=== PATIENT | female | born 1995 | race American Indian/Alaskan Native ===

== ENCOUNTER 2016-11-22 14:56 | Emergency (ER) | payer SELFPAY ==
[2016-11-22] MEDS ORDERED: TORADOL ONE (16:01)
[2016-11-22] MEDS ORDERED: TORADOL IM ONE (16:11)
--- NOTE | 2016-11-22 16:11 | Emergency Department Report ---
Chief Complaint: Abdominal Pain Stated Complaint: ABD PAIN Time Seen by Provider: 11/22/16 16:06 - HPI History of Present Illness: Patient is a 21-year-old female who presents to ED complaining of left-sided flank pain 4 days. Patient states pain began 4 days ago and has gotten progressively worse. Patient states last menstrual period was 11/17/2016. Patient states she notices a spot of blood when she wipes after she uses a bathroom started 2 days ago. She states pain is localized to the left flank area nonradiating, 9 out of 10 intensity Patient denies fever/nausea/vomiting chills/pain with urination. - ROS Review of Systems: As noted in HPI - Exam Vital Signs: Vital Signs 11/22/16 15:57 Temperature 99.5 F Pulse Rate 85 Respiratory 24 Rate Blood Pressure 132/81 O2 Sat by Pulse 97 Oximetry Physical Exam: GENERAL: Alert and oriented x3, in mild distress, Normal Gait, crying and stating pain. LUNGS: Symetrical with respiration, No wheezing, no rales or crackles, CTAB. HEART: S1, S2 present, regular rate and rhythm without murmur, no rubs, no gallops. ABDOMEN: No organomegaly was noted,Positive bowel sounds, soft, and non- distended. . Tenderness to palpation of left flank area, CVA tenderness on the left side nontender to any other palpation of the abdomen, MSE screening note: Focused history and physical exam performed. Due to findings the following was ordered: ED Medical Decision Making - Medical Decision Making 60 mg of Toradol IM administered to patient. Labs ordered. Patient to be seen by ED physician. ED Disposition for MSE Condition: Stable Instructions: Abdominal Pain (ED)
[2016-11-22 17:47] LABS: Bacteria,Urine 1+ /HPF (Negative); Bilirubin,Urine NEG (Negative); Blood,Urine MOD (Negative); Ketones,Urine NEG (Negative); Leukocyte Esterase,Urine LG (Negative); Mucus,Urine FEW /HPF; Nitrite,Urine POS (Negative); Urobilinogen,Urine < 2.0 mg/dL (<2.0)
[2016-11-22] MEDS ORDERED: ZOFRAN IV ONE (22:46)
[2016-11-22] MEDS ORDERED: SUBLIMAZE IV ONE (22:46)
[2016-11-22] MEDS ORDERED: TORADOL IV ONE (22:46)
[2016-11-22] MEDS ORDERED: ROCEPHIN/NS 1 GM/50 ML 1 GM/50 ML BAG IV ONE (22:47)
--- NOTE | 2016-11-22 22:53 | Emergency Department Report ---
HPI - General Chief Complaint: Abdominal Pain Time Seen by Provider: 11/22/16 16:06 - HPI HPI: Room 10 The patient is a 21-year-old female presenting with a chief complaint of left flank pain. The patient states for the past 4 days she has had a constant left flank pain. Patient denies hematuria or dysuria. Patient admits to subjective fever. Patient does admit to nausea and vomiting. The patient appears to be in a lot of discomfort and is not forthcoming with history. The patient gives her pain a score of 40/10 Location: Left flank Duration: 4 days Quality: "Pain" Severity: 40/10 Modifying factors: [see above] Context: [see above] Mode of transportation: [not driving] ED Past Medical Hx - Past Medical History Previous Medical History?: No - Surgical History Past Surgical History?: No - Family History Family history: no significant - Social History Smoking Status: Current Every Day Smoker Substance Use Type: None - Medications Home Medications: Home Medications Medication Instructions Recorded Confirmed Last Taken Type Ibuprofen [Motrin] 600 mg PO Q8H PRN #15 tablet 10/29/16 Unknown Rx methOCARBAMOL [Robaxin TAB] 500 mg PO Q6H PRN #15 tablet 10/29/16 Unknown Rx Ciprofloxacin HCl [Ciprofloxacin 500 mg PO Q12HR #20 tab 11/23/16 Unknown Rx TAB] HYDROcodone/APAP 5-325 [[place] 1 - 2 each PO Q6HR PRN #10 tablet 11/23/16 Unknown Rx 5/325] Ibuprofen [Motrin 800 MG tab] 800 mg PO Q8HR PRN #20 tablet 11/23/16 Unknown Rx Promethazine [Phenergan TAB] 25 mg PO Q6HR PRN #20 tab 11/23/16 Unknown Rx Promethazine [Phenergan] 25 mg [place] Q6HR PRN #5 supp.rect 11/23/16 Unknown Rx ED Review of Systems ROS: Stated complaint: ABD PAIN Other details as noted in HPI Comment: All other systems reviewed and negative Constitutional: fever (subjective) Eyes: denies: eye pain, eye discharge, vision change ENT: denies: ear pain, throat pain Respiratory: denies: cough, shortness of breath, wheezing Cardiovascular: denies: chest pain, palpitations Endocrine: no symptoms reported Gastrointestinal: abdominal pain, nausea, vomiting Genitourinary: denies: dysuria, hematuria Musculoskeletal: back pain Skin: denies: rash, lesions Neurological: denies: headache, weakness, paresthesias Psychiatric: denies: anxiety, depression Hematological/Lymphatic: denies: easy bleeding, easy bruising Physical Exam - Physical Exam Vital Signs: Vital Signs 11/22/16 15:57 Temperature 99.5 F Pulse Rate 85 Respiratory 24 Rate Blood Pressure 132/81 O2 Sat by Pulse 97 Oximetry Physical Exam: GENERAL: The patient is well-developed well-nourished female lying on stretcher tearful. Appearing to be in significant discomfort HEENT: Normocephalic. Atraumatic. Extraocular motions are intact. Patient has moist mucous membranes. NECK: Supple. Trachea midline CHEST/LUNGS: Clear to auscultation. There is no respiratory distress noted. HEART/CARDIOVASCULAR: Regular. There is no tachycardia. There is no gallop rub or murmur. ABDOMEN: Abdomen is soft, mild discomfort to palpation of the left upper quadrant and left lower quadrant. Patient has normal bowel sounds. There is no abdominal distention. SKIN: There is no rash. There is no edema. There is no diaphoresis. NEURO: The patient is awake, alert, and oriented. The patient is cooperative. The patient has normal speech MUSCULOSKELETAL: There is left flank pain. There is no evidence of acute injury. ED Course Vital Signs 11/22/16 15:57 Temperature 99.5 F Pulse Rate 85 Respiratory 24 Rate Blood Pressure 132/81 O2 Sat by Pulse 97 Oximetry ED Medical Decision Making - Lab Data Result diagrams: 11/22/16 22:15 11/22/16 22:15 Laboratory Tests 11/22/16 11/22/16 11/22/16 16:31 16:53 22:15 WBC 15.5 H RBC 4.66 Hgb 11.9 Hct 37.4 MCV 80 MCH 26 L MCHC 32 RDW 19.3 H Plt Count 152 Lymph % (Auto) 11.2 L Stanley % (Auto) 12.7 H Eos % (Auto) 0.1 Baso % (Auto) 0.2 Lymph # 1.7 Stanley # 2.0 H Eos # 0.0 Baso # 0.0 Seg Neutrophils % 75.8 H Seg Neutrophils # 11.8 H Sodium Potassium Chloride Carbon Dioxide Anion Gap BUN Creatinine Estimated GFR BUN/Creatinine Ratio Glucose Calcium HCG, Qual Negative Urine Color Yellow Urine Turbidity Slightly-cloudy Urine pH 6.0 Ur Specific [place] 1.016 Urine Protein 30 mg/dl Urine Glucose (UA) Neg Urine Ketones Neg Urine Blood Mod Urine Nitrite Pos Urine Bilirubin Neg Urine Urobilinogen < 2.0 Ur Leukocyte Esterase Lg Urine WBC (Auto) 87.0 H Urine RBC (Auto) 4.0 U Epithel Cells (Auto) 2.0 Urine Bacteria (Auto) 1+ Urine Mucus Few 11/22/16 22:15 WBC RBC Hgb Hct MCV MCH MCHC RDW Plt Count Lymph % (Auto) Stanley % (Auto) Eos % (Auto) Baso % (Auto) Lymph # Stanley # Eos # Baso # Seg Neutrophils % Seg Neutrophils # Sodium 138 Potassium 3.6 Chloride 99.7 Carbon Dioxide 25 Anion Gap 17 BUN 17 Creatinine 0.9 Estimated GFR > 60 BUN/Creatinine Ratio 18.88 Glucose 92 Calcium 8.4 HCG, Qual Urine Color Urine Turbidity Urine pH Ur Specific [place] Urine Protein Urine Glucose (UA) Urine Ketones Urine Blood Urine Nitrite Urine Bilirubin Urine Urobilinogen Ur Leukocyte Esterase Urine WBC (Auto) Urine RBC (Auto) U Epithel Cells (Auto) Urine Bacteria (Auto) Urine Mucus - Radiology Data Radiology results: report reviewed (CT abdomen and pelvis), image reviewed (CT abdomen and pelvis) CT abdomen pelvis (read by radiologist)-left perinephric stranding concerning for pyelonephritis - Differential Diagnosis renal colic, pyelonephritis Critical care attestation.: If time is entered above; I have spent that time in minutes in the direct care of this critically ill patient, excluding procedure time. ED Disposition Clinical Impression: Acute left flank pain, Acute pyelonephritis, Leukocytosis Disposition: DISCHARGED TO HOME OR SELFCARE Is pt being admited?: No Does the pt Need Aspirin: No Condition: Stable Instructions: Abdominal Pain (ED), Acute Pyelonephritis (ED) Additional Instructions: Return to the emergency department immediately should you develop worsening symptoms, fever, inability to tolerate food or liquid or any other concerns. Prescriptions: Ciprofloxacin HCl [Ciprofloxacin TAB] 500 mg PO Q12HR #20 tab HYDROcodone/APAP 5-325 [[place] 5/325] 1 - 2 each PO Q6HR PRN #10 tablet PRN Reason: Pain Ibuprofen [Motrin 800 MG tab] 800 mg PO Q8HR PRN #20 tablet PRN Reason: Pain Promethazine [Phenergan TAB] 25 mg PO Q6HR PRN #20 tab PRN Reason: Nausea Promethazine [Phenergan] 25 mg [place] Q6HR PRN #5 supp.rect PRN Reason: Vomiting Referrals: PRIMARY CARE, [Primary Care Provider] - 3-[address] [facility] [Outside] - 3-5 Days Time of Disposition: 00:28
[2016-11-22 23:04] LABS: Basophils % (Auto) 0.2 % (0.0-1.8); Eosinophils % (Auto) 0.1 % (0.0-4.3); Hematocrit 37.4 % (30.3-42.9); Hemoglobin 11.9 gm/dl (10.1-14.3); Mean Corpuscular HGB Conc 32 % (30-34); Mean Corpuscular Volume 80 fl (79-97); Platelet Count 152 K/mm3 (140-440); Red Blood Count 4.66 M/mm3 (3.65-5.03); Red Cell Distribution Width 19.3 % (13.2-15.2); White Blood Count 15.5 K/mm3 (4.5-11.0)
[2016-11-22 23:18] LABS: Mean Corpuscular Hemoglobin 26 pg (28-32)
[2016-11-22 23:21] LABS: Anion Gap 17 mmol/L; BUN/Creatinine Ratio 18.88; Blood Urea Nitrogen 17 mg/dL (7-17); Calcium 8.4 mg/dL (8.4-10.2); Carbon Dioxide 25 mmol/L (22-30); Chloride 99.7 mmol/L (98-107); Glucose 92 mg/dL (65-100); Potassium 3.6 mmol/L (3.6-5.0); Sodium 138 mmol/L (137-145)
--- NOTE | 2016-11-23 00:13 | Cat Scan Report ---
FINAL REPORT EXAM: CT ABDOMEN PELVIS WO CON HISTORY: left flank pain COMPARISON: None available. TECHNIQUE: Contiguous axial images were obtained. Additional sagittal and coronal reformatted images were obtained. FINDINGS: Lung bases are clear. Mild enlargement of the liver measuring 14 centimeters. Liver and pancreas are grossly unremarkable. Mild nodular thickening of adrenal glands. No calcified gallstones. Mild left-sided perinephric stranding. No nephrolithiasis or hydronephrosis bilaterally. Aorta and IVC are normal in caliber. No distal ureteral or urinary bladder calculi. Uterus and ovaries are grossly unremarkable. No free fluid or pathologic lymphadenopathy. Large and small bowel loops normal in caliber. The visualized appendix is normal in caliber and best seen on the coronal images measuring 4-5 millimeters in diameter. No adjacent fat stranding or fluid. Bony pelvis and lumbar spine are grossly intact. IMPRESSION: Mild left-sided perinephric stranding. No obstructive uropathy urolithiasis. Findings are concerning for left-sided pyelonephritis. Recent passage of stone could cause a similar appearance. Correlation with urinalysis suggested. No other gross acute findings.
[2016-11-23 00:27] VITALS: BP 114/57
--- NOTE | 2016-11-23 07:22 | XRay Report ---
Single view abdomen: History: Pain. Findings: No bowel distention or wall thickening. No radiopaque calculus or abnormal calcification. Impression: Essentially negative abdomen.
== END 2016-11-23 00:01 | disposition home or self-care (01) ==
LOC: ED 14:56
DX: N10 Acute pyelonephritis (principal); D72.829 Elevated white blood cell count, unspecified; F17.200 Nicotine dependence, unspecified, uncomplicated
CPT/HCPCS: 36415; 74000; 74176; 80048; 81001; 84703; 85025; 96365; 96372; 96375; 99284; J0696; J1885; J2405; J3010

== ENCOUNTER 2017-05-15 23:16 | Emergency (ER) | payer SELFPAY ==
[2017-05-15] MEDS ORDERED: ATIVAN IM ONE (23:25)
[2017-05-15] MEDS ORDERED: HALDOL IM ONE (23:25)
[2017-05-15] MEDS ORDERED: HALDOL ONE (23:27)
[2017-05-15] MEDS ORDERED: ATIVAN ONE (23:27)
--- NOTE | 2017-05-15 23:27 | Emergency Department Report ---
ED General Adult HPI - General Chief complaint: Altered Mental Status Stated complaint: UNRESPONSIVE Time Seen by Provider: 05/15/17 23:24 Source: EMS (verbal report received from EMS.ems notes not available at time of chart dictation), RN notes reviewed, old records reviewed Limitations: Altered Mental Status - History of Present Illness Initial comments: This is a 21-year-old female. The patient is previously unknown to this provider. Patient is brought to the hospital by EMS for altered mental status. As per verbal report from EMS, patient found down, outside, for uncertain duration of time, and through uncertain mechanism. They report appropriate finger stick in the field, and pinpoint pupils that does not react to Narcan. No family or witnesses are available at this time for corroborating history. The patient is altered, and is not able to provide exacerbating or relieving factors. In the ER, the patient became somewhat more responsive, and was agitated, belligerent and combative. The patient did not respond to verbal de- escalation techniques, nor did she respond to show of force. Patient clearly a danger to herself and to other patients, therefore required soft restraints, and was medicated with Haldol, Ativan, still agitated, and required administration of Geodon. -: unknown Quality: other (per hpi) Improves with: other (per hpi) Worsens with: other (per hpi) Associated Symptoms: other (per hpi) - Related Data Previous Rx's Medication Instructions Recorded Last Taken Type Ibuprofen [Motrin] 600 mg PO Q8H PRN #15 tablet 10/29/16 Unknown Rx methOCARBAMOL [Robaxin TAB] 500 mg PO Q6H PRN #15 tablet 10/29/16 Unknown Rx Ciprofloxacin HCl [Ciprofloxacin 500 mg PO Q12HR #20 tab 11/23/16 Unknown Rx TAB] HYDROcodone/APAP 5-325 [[place] 1 - 2 each PO Q6HR PRN #10 tablet 11/23/16 Unknown Rx 5/325] Ibuprofen [Motrin 800 MG tab] 800 mg PO Q8HR PRN #20 tablet 11/23/16 Unknown Rx Promethazine [Phenergan TAB] 25 mg PO Q6HR PRN #20 tab 11/23/16 Unknown Rx Promethazine [Phenergan] 25 mg [place] Q6HR PRN #5 supp.rect 11/23/16 Unknown Rx Bacitracin [Bacitracin Ophth] 3.5 gm OP Q6HR #1 oint...g. 05/16/17 Unknown Rx Cephalexin [Keflex] 500 mg PO Q12HR #10 cap 05/16/17 Unknown Rx Allergies Allergy/AdvReac Type Severity Reaction Status Date / Time No Known Allergies Allergy Verified 01/06/15 18:15 ED Review of Systems ROS: Stated complaint: UNRESPONSIVE Other details as noted in HPI Comment: Unobtainable due to pts medical conditions ED Past Medical Hx - Past Medical History Hx Hypertension: No Hx CVA: No Hx Heart Attack/AMI: No Hx Congestive Heart Failure: No Hx Diabetes: No Hx Deep Vein Thrombosis: No Hx Pulmonary Embolism: No Hx GERD: No Hx Liver Disease: No Hx Renal Disease: No Hx Sickle Cell Disease: No Hx Arthritis: No Hx Headaches / Migraines: No Hx Seizures: No Hx Kidney Stones: No Hx Psychiatric Treatment: No Hx Asthma: No Hx COPD: No Hx Tuberculosis: No Hx Dementia: No Hx HIV: No - Social History Smoking Status: Current Every Day Smoker Substance Use Type: None - Medications Home Medications: Home Medications Medication Instructions Recorded Confirmed Last Taken Type Ibuprofen [Motrin] 600 mg PO Q8H PRN #15 tablet 10/29/16 Unknown Rx methOCARBAMOL [Robaxin TAB] 500 mg PO Q6H PRN #15 tablet 10/29/16 Unknown Rx Ciprofloxacin HCl [Ciprofloxacin 500 mg PO Q12HR #20 tab 11/23/16 Unknown Rx TAB] HYDROcodone/APAP 5-325 [[place] 1 - 2 each PO Q6HR PRN #10 tablet 11/23/16 Unknown Rx 5/325] Ibuprofen [Motrin 800 MG tab] 800 mg PO Q8HR PRN #20 tablet 11/23/16 Unknown Rx Promethazine [Phenergan TAB] 25 mg PO Q6HR PRN #20 tab 11/23/16 Unknown Rx Promethazine [Phenergan] 25 mg [place] Q6HR PRN #5 supp.rect 11/23/16 Unknown Rx Bacitracin [Bacitracin Ophth] 3.5 gm OP Q6HR #1 oint...g. 05/16/17 Unknown Rx Cephalexin [Keflex] 500 mg PO Q12HR #10 cap 05/16/17 Unknown Rx ED Physical Exam - General Limitations: Altered Mental Status General appearance: lethargic - Head Head exam: Present: normocephalic - Eye Eye exam: Present: normal appearance, other (pupils are midpoint, did not react to light). Absent: nystagmus - ENT ENT exam: Present: normal exam, mucous membranes moist, TM's normal bilaterally. Absent: normal external ear exam (right ear within normal limits. Left ear has a laceration at this helix. It is not through and through. No foreign bodies are noted.) - Neck Neck exam: Present: normal inspection. Absent: tenderness, meningismus - Respiratory Respiratory exam: Present: normal lung sounds bilaterally. Absent: respiratory distress, wheezes, rales, rhonchi, stridor, chest wall tenderness - Cardiovascular Cardiovascular Exam: Present: regular rate, normal rhythm, normal heart sounds. Absent: bradycardia, tachycardia, irregular rhythm, systolic murmur, diastolic murmur, rubs, gallop - GI/Abdominal GI/Abdominal exam: Present: soft, normal bowel sounds. Absent: distended, tenderness, guarding, rebound, rigid, pulsatile mass - Extremities Exam Extremities exam: Present: normal inspection, normal capillary refill. Absent: tenderness, calf tenderness - Back Exam Back exam: Present: normal inspection. Absent: CVA tenderness (R), paraspinal tenderness, vertebral tenderness - Neurological Exam Neurological exam: Present: altered, other (prior to sedation, patient noted to be moving 4 extremities spontaneously.) - Psychiatric Psychiatric exam: Present: agitated - Skin Skin exam: Present: other (left ear laceration). Absent: rash ED Course Vital Signs 05/15/17 05/15/17 05/16/17 23:40 23:50 00:00 Pulse Rate 92 H 92 H 87 Respiratory 20 22 14 Rate Blood Pressure 117/68 Blood Pressure 117/68 [Left] O2 Sat by Pulse 100 97 Oximetry 05/16/17 05/16/17 05/16/17 00:15 00:30 00:45 Pulse Rate 87 88 89 Respiratory 15 15 16 Rate Blood Pressure 106/55 106/55 105/62 Blood Pressure 106/55 102/53 [Left] O2 Sat by Pulse 99 100 Oximetry 05/16/17 05/16/17 05/16/17 00:51 01:00 01:49 Pulse Rate 89 89 Respiratory 16 12 Rate Blood Pressure 117/72 Blood Pressure 105/62 [Left] O2 Sat by Pulse 100 100 98 Oximetry 05/16/17 05/16/17 05/16/17 02:01 02:15 02:30 Pulse Rate 90 91 H 89 Respiratory 14 14 14 Rate Blood Pressure 112/74 115/64 111/65 Blood Pressure [Left] O2 Sat by Pulse 98 Oximetry 05/16/17 05/16/17 05/16/17 02:45 03:00 03:15 Pulse Rate 99 H 90 87 Respiratory 12 14 12 Rate Blood Pressure 129/90 114/65 105/65 Blood Pressure [Left] O2 Sat by Pulse 96 97 100 Oximetry 05/16/17 05/16/17 05/16/17 03:30 03:45 04:00 Pulse Rate 89 89 89 Respiratory 12 13 13 Rate Blood Pressure 107/59 102/63 109/59 Blood Pressure [Left] O2 Sat by Pulse Oximetry 05/16/17 05/16/17 05/16/17 04:15 04:30 05:00 Pulse Rate 88 88 87 Respiratory 12 12 12 Rate Blood Pressure 110/65 108/64 104/70 Blood Pressure [Left] O2 Sat by Pulse 100 100 Oximetry 05/16/17 05/16/17 05/16/17 05:30 06:00 06:30 Pulse Rate 93 H 86 91 H Respiratory 12 13 12 Rate Blood Pressure 116/75 110/67 114/69 Blood Pressure [Left] O2 Sat by Pulse 100 100 Oximetry 05/16/17 05/16/17 05/16/17 07:00 07:30 08:00 Pulse Rate 88 91 H 83 Respiratory 11 L 13 12 Rate Blood Pressure 103/67 110/65 99/52 Blood Pressure [Left] O2 Sat by Pulse 100 100 Oximetry 05/16/17 05/16/17 05/16/17 08:30 09:00 09:30 Pulse Rate 92 H 92 H 97 H Respiratory 15 13 15 Rate Blood Pressure 104/58 107/56 114/67 Blood Pressure [Left] O2 Sat by Pulse 100 Oximetry 05/16/17 05/16/17 05/16/17 10:00 10:30 11:00 Pulse Rate 92 H 92 H 99 H Respiratory 14 12 18 Rate Blood Pressure 103/52 107/62 103/51 Blood Pressure [Left] O2 Sat by Pulse 96 Oximetry 05/16/17 11:30 Pulse Rate 109 H Respiratory 15 Rate Blood Pressure 113/33 Blood Pressure [Left] O2 Sat by Pulse 91 Oximetry - Reevaluation(s) Reevaluation #1: 05/16/17 00:33 Differential diagnosis: Intracranial injury, cervical spine injury, pneumonia, urinary tract infection, toxic encephalopathy, left ear laceration Assessment and plan: 21-year-old female found down, threw uncertain mechanism, uncertain duration of time, most likely unintentional overdose. There is no stigmata of external wounds, that would be self-inflicted, as an incidental left -sided ear laceration. Noncontrast CT scan of the brain and cervical spine are pending, cervical collar resorted, laboratory studies thus far unremarkable, x-ray the chest not consistent with pneumonia, urinalysis pending. Tetanus vaccination will be administered. Reevaluation #2: 05/16/17 05:10 Blood alcohol level elevated at 0.42. CT scan of the brain and cervical spine are negative. Laceration of the left ear repaired Currently awaiting clinical sobriety Reevaluation #3: 05/16/17 05:13 Care will be transferred to the oncoming ER physician, Dr. Harrison Carroll, who will observe the patient in the ER pending clinical sobriety. Plan to discharge the patient once her blood alcohol level is less than 0.1, and when she can walk with a steady gait, is alert and oriented 3, and appears to exhibit decision-making capacity. She'll need to follow-up with either plastics , otolaryngology for her left-sided ear laceration. She'll be discharged for prophylactic antibiotics. - Laceration /Wound Repair Left Upper Ear Wound Location: head Wound Length (cm): 4 Wound's Depth, Shape: linear (into tissue and cartiledge) Wound Explored: clean Irrigated w/ Saline (ccs): 500 Betadine Prep?: Yes Wound Debrided: minimal Suture Size/Type: 5:0 Number of Sutures: 4 Layer Closure?: No Sterile Dressing Applied?: No Progress: The left ear is irrigated with sterile saline and adequate pressure. It is then explored on a bloodless field. There is a linear 2.5 cm laceration on the superior aspect of the ear, involving the cartilage. No foreign bodies are noted. Interrupted sutures are placed with 5-0 monofilament, with good cosmetic approximation, the patient tolerated the procedure adequately. No obvious complication. ED Medical Decision Making - Lab Data Result diagrams: 05/15/17 23:39 05/15/17 23:39 Lab Results 05/15/17 05/15/17 05/15/17 Range/Units 23:39 23:39 23:39 WBC 7.7 (4.5-11.0) K/mm3 RBC 5.25 H (3.65-5.03) M/mm3 Hgb 14.4 H (10.1-14.3) gm/dl Hct 45.0 H (30.3-42.9) % MCV 86 (79-97) fl MCH 27 L (28-32) pg MCHC 32 (30-34) % RDW 15.1 (13.2-15.2) % Plt Count 135 L (140-440) K/mm3 Lymph % (Auto) 26.1 (13.4-35.0) % Sullivan % (Auto) 4.5 (0.0-7.3) % Eos % (Auto) 3.5 (0.0-4.3) % Baso % (Auto) 0.5 (0.0-1.8) % Lymph # 2.0 (1.2-5.4) K/mm3 Sullivan # 0.3 (0.0-0.8) K/mm3 Eos # 0.3 (0.0-0.4) K/mm3 Baso # 0.0 (0.0-0.1) K/mm3 Seg Neutrophils % 65.4 (40.0-70.0) % Seg Neutrophils # 5.1 (1.8-7.7) K/mm3 Sodium 148 H (137-145) mmol/L Potassium 4.3 (3.6-5.0) mmol/L Chloride 106.9 (98-107) mmol/L Carbon Dioxide 23 (22-30) mmol/L Anion Gap 22 mmol/L BUN 11 (7-17) mg/dL Creatinine 0.8 (0.7-1.2) mg/dL Estimated GFR > 60 ml/min BUN/Creatinine Ratio 13.75 % Glucose 110 H (65-100) mg/dL Calcium 8.5 (8.4-10.2) mg/dL Total Bilirubin 0.20 (0.1-1.2) mg/dL AST 19 (5-40) units/L ALT 14 (7-56) units/L Alkaline Phosphatase 74 (35-129) units/L Ammonia (25-60) umol/L Total Creatine Kinase 170 H (30-135) units/L Troponin T < 0.010 (0.00-0.029) ng/mL Total Protein 7.5 (6.3-8.2) g/dL Albumin 4.6 (3.9-5) g/dL Albumin/Globulin Ratio 1.6 % TSH 0.487 (0.270-4.200) mlU/mL HCG, Quant (0-4) mIU/mL Salicylates (2.8-20.0) mg/dL Acetaminophen (10.0-30.0) ug/mL Plasma/Serum Alcohol (0-0.07) gm% 05/15/17 05/15/17 05/15/17 Range/Units 23:39 23:39 23:39 WBC (4.5-11.0) K/mm3 RBC (3.65-5.03) M/mm3 Hgb (10.1-14.3) gm/dl Hct (30.3-42.9) % MCV (79-97) fl MCH (28-32) pg MCHC (30-34) % RDW (13.2-15.2) % Plt Count (140-440) K/mm3 Lymph % (Auto) (13.4-35.0) % Sullivan % (Auto) (0.0-7.3) % Eos % (Auto) (0.0-4.3) % Baso % (Auto) (0.0-1.8) % Lymph # (1.2-5.4) K/mm3 Sullivan # (0.0-0.8) K/mm3 Eos # (0.0-0.4) K/mm3 Baso # (0.0-0.1) K/mm3 Seg Neutrophils % (40.0-70.0) % Seg Neutrophils # (1.8-7.7) K/mm3 Sodium (137-145) mmol/L Potassium (3.6-5.0) mmol/L Chloride (98-107) mmol/L Carbon Dioxide (22-30) mmol/L Anion Gap mmol/L BUN (7-17) mg/dL Creatinine (0.7-1.2) mg/dL Estimated GFR ml/min BUN/Creatinine Ratio % Glucose (65-100) mg/dL Calcium (8.4-10.2) mg/dL Total Bilirubin (0.1-1.2) mg/dL AST (5-40) units/L ALT (7-56) units/L Alkaline Phosphatase (35-129) units/L Ammonia (25-60) umol/L Total Creatine Kinase (30-135) units/L Troponin T (0.00-0.029) ng/mL Total Protein (6.3-8.2) g/dL Albumin (3.9-5) g/dL Albumin/Globulin Ratio % TSH (0.270-4.200) mlU/mL HCG, Quant (0-4) mIU/mL Salicylates < 0.3 L (2.8-20.0) mg/dL Acetaminophen < 15.0 (10.0-30.0) ug/mL Plasma/Serum Alcohol 0.42 H (0-0.07) gm% 05/15/17 05/16/17 Range/Units 23:39 00:01 WBC (4.5-11.0) K/mm3 RBC (3.65-5.03) M/mm3 Hgb (10.1-14.3) gm/dl Hct (30.3-42.9) % MCV (79-97) fl MCH (28-32) pg MCHC (30-34) % RDW (13.2-15.2) % Plt Count (140-440) K/mm3 Lymph % (Auto) (13.4-35.0) % Sullivan % (Auto) (0.0-7.3) % Eos % (Auto) (0.0-4.3) % Baso % (Auto) (0.0-1.8) % Lymph # (1.2-5.4) K/mm3 Sullivan # (0.0-0.8) K/mm3 Eos # (0.0-0.4) K/mm3 Baso # (0.0-0.1) K/mm3 Seg Neutrophils % (40.0-70.0) % Seg Neutrophils # (1.8-7.7) K/mm3 Sodium (137-145) mmol/L Potassium (3.6-5.0) mmol/L Chloride (98-107) mmol/L Carbon Dioxide (22-30) mmol/L Anion Gap mmol/L BUN (7-17) mg/dL Creatinine (0.7-1.2) mg/dL Estimated GFR ml/min BUN/Creatinine Ratio % Glucose (65-100) mg/dL Calcium (8.4-10.2) mg/dL Total Bilirubin (0.1-1.2) mg/dL AST (5-40) units/L ALT (7-56) units/L Alkaline Phosphatase (35-129) units/L Ammonia 46.0 (25-60) umol/L Total Creatine Kinase (30-135) units/L Troponin T (0.00-0.029) ng/mL Total Protein (6.3-8.2) g/dL Albumin (3.9-5) g/dL Albumin/Globulin Ratio % TSH (0.270-4.200) mlU/mL HCG, Quant < 2 (0-4) mIU/mL Salicylates (2.8-20.0) mg/dL Acetaminophen (10.0-30.0) ug/mL Plasma/Serum Alcohol (0-0.07) gm% - EKG Data -: EKG Interpreted by Me EKG shows normal: sinus rhythm, axis, intervals, QRS complexes, ST-T waves - EKG Data When compared to previous EKG there are: previous EKG unavailable 05/16/17 00:35 Normal sinus, 98 bpm, normal axis, QTC 476 ms, not morphologically consistent with STEMI - Radiology Data Radiology results: pending, report reviewed, image reviewed interpreted by me: X-ray the chest is negative for acute disease Critical care attestation.: If time is entered above; I have spent that time in minutes in the direct care of this critically ill patient, excluding procedure time. ED Disposition Clinical Impression: Alcohol intoxication, Laceration of left ear Disposition: DC- TO HOME OR SELFCARE Is pt being admited?: No Does the pt Need Aspirin: No Condition: Stable Instructions: Laceration (ED), At-Risk Alcohol Use (ED) Additional Instructions: Take the antibiotics as directed. Use antibiotic cream as directed. Follow up with a plastic surgeon or build technician within the next 3-5 days to follow- up on the left ear laceration. Alternatively, return to the ER in the recommended timeframe to have the left ear laceration rechecked. Avoid trauma, and avoid excessive consumption of alcohol in the future, as this can cause , disability, paralysis, loss of quality of life. Return to the ER right away with new pain, worsened pain, migration of pain, fevers, chills, redness, pus, streaking, confusion, intractable nausea or vomiting, inability to tolerate liquid feeds. Prescriptions: Bacitracin [Bacitracin Ophth] 3.5 gm OP Q6HR #1 oint...g. Cephalexin [Keflex] 500 mg PO Q12HR #10 cap Referrals: PRIMARY CARE, [Primary Care Provider] - 3-5 Days SCOTTY GONZALEZ MD [Staff Physician] - 3-5 Days WILLARD EVANS MD [Staff Physician] - 3-5 Days
[2017-05-15] MEDS ORDERED: GEODON IM ONE (23:40)
[2017-05-15] MEDS ORDERED: WATER FOR INJ (PF) 10 ML ONE (23:41)
[2017-05-16 00:02] LABS: Basophils % (Auto) 0.5 % (0.0-1.8); Eosinophils % (Auto) 3.5 % (0.0-4.3); Hemoglobin 14.4 gm/dl (10.1-14.3); Mean Corpuscular HGB Conc 32 % (30-34); Mean Corpuscular Hemoglobin 27 pg (28-32); Mean Corpuscular Volume 86 fl (79-97); Platelet Count 135 K/mm3 (140-440); Red Blood Count 5.25 M/mm3 (3.65-5.03); Red Cell Distribution Width 15.1 % (13.2-15.2); White Blood Count 7.7 K/mm3 (4.5-11.0)
[2017-05-16] MEDS ORDERED: GEODON IM ONE (00:03)
[2017-05-16] MEDS ORDERED: BOOSTRIX IM ONE (00:06)
[2017-05-16] MEDS ORDERED: XYLOCAINE TOPICAL 4% TP ONE (00:06)
[2017-05-16] MEDS ORDERED: XYLOCAINE 1% 20 mL INFILTRATI ONE (00:06)
[2017-05-16] MEDS ORDERED: NACL 0.9% IR ONE (00:07)
[2017-05-16 00:25] LABS: Alanine Aminotransferase 14 units/L (7-56); Albumin 4.6 g/dL (3.9-5); Albumin/Globulin Ratio 1.6 %; Alkaline Phosphatase 74 units/L (35-129); Anion Gap 22 mmol/L; BUN/Creatinine Ratio 13.75; Blood Urea Nitrogen 11 mg/dL (7-17); Calcium 8.5 mg/dL (8.4-10.2); Carbon Dioxide 23 mmol/L (22-30); Chloride 106.9 mmol/L (98-107); Creatine Kinase 170 units/L (30-135); Glucose 110 mg/dL (65-100); Potassium 4.3 mmol/L (3.6-5.0); Sodium 148 mmol/L (137-145); Total Protein 7.5 g/dL (6.3-8.2)
[2017-05-16 01:15] LABS: INR 1.05 (0.87-1.13); Partial Thromboplastin Time 27.6 Sec. (24.2-36.6)
--- NOTE | 2017-05-16 02:02 | Cat Scan Report ---
FINAL REPORT EXAM: CT CERVICAL SPINE W/O CONTRAST. HISTORY: Altered mental status. Pain. TECHNIQUE: Unenhanced axial CT images of the cervical spine were obtained. Coronal and sagittal reformatted images were also obtained. No prior studies are available for comparison. FINDINGS: The cervical vertebral bodies demonstrate normal height and morphology. There is nonspecific straightening of the normal cervical lordosis, which may be due to patient positioning and/or muscle spasm. There is no fracture or spondylolisthesis. The prevertebral soft tissues are unremarkable. Note is made of a small focal, well-corticated defect at the posterior ring of C1, which has the appearance of fusion anomaly/developmental variant. The intervertebral disc heights are maintained. There is no significant degenerative change. There is no central stenosis or neural foraminal narrowing. The visualized lung apices are clear. No discrete mass or nodule is seen in the thyroid gland. IMPRESSION: Nonspecific straightening, which may be due to patient positioning and/or muscle spasm. No fracture or spondylolisthesis.
[2017-05-16 02:13] LABS: Urine Drugs of Abuse Note Disclamer
[2017-05-16 02:44] LABS: Bilirubin,Urine NEG (Negative); Blood,Urine NEG (Negative); Ketones,Urine NEG (Negative); Leukocyte Esterase,Urine NEG (Negative); Nitrite,Urine NEG (Negative); Protein,Urine <15 mg/dL mg/dL (Negative); Urobilinogen,Urine < 2.0 mg/dL (<2.0); WBC,Urine < 1.0 /HPF (0.0-6.0)
--- NOTE | 2017-05-16 02:55 | Cat Scan Report ---
FINAL REPORT PROCEDURE: CT HEAD/BRAIN WO CON TECHNIQUE: Computerized tomography of the head was performed without contrast material. HISTORY: Altered Mental Status COMPARISON: No prior studies are available for comparison. FINDINGS: Skull and scalp: Normal. Paranasal sinuses: Normal. Ventricles and subarachnoid spaces: Normal. Cerebrum: No evidence of hemorrhage, acute infarction or mass . Cerebellum and brainstem: No evidence of hemorrhage, acute infarction or mass. Vasculature: Normal. Comments: None. IMPRESSION: Normal Examination
[2017-05-16] MEDS ORDERED: ANTIBIOTIC OINT TP ONE (05:12)
--- NOTE | 2017-05-16 08:37 | XRay Report ---
AP CHEST: HISTORY: Altered mental status AP view of the chest demonstrates a normal mediastinal and cardiac contour with clear lungs and normal bony and soft tissue structures. IMPRESSION: Unremarkable AP chest.
[2017-05-16] MEDS ORDERED: TYLENOL ONE (11:33)
[2017-05-16] MEDS ORDERED: TYLENOL PO ONE (11:38)
[2017-05-16] MEDS ORDERED: ZOFRAN IV ONE (12:00)
[2017-05-16 12:02] VITALS: BP 113/33
[2017-05-16] MEDS ORDERED: ZOFRAN ONE (12:03)
== END 2017-05-16 12:12 | disposition home or self-care (01) ==
LOC: ED 23:16
DX: S01.312A Laceration without foreign body of left ear, initial encounter (principal); X58.XXXA Exposure to other specified factors, initial encounter; Y93.9 Activity, unspecified; Y92.9 Unspecified place or not applicable; Y99.9 Unspecified external cause status; F10.129 Alcohol abuse with intoxication, unspecified
CPT/HCPCS: 12013; 36415; 70450; 71010; 72125; 80053; 80307; 81001; 82140; 82550; 84443; 84484; 84702; 85025; 85610; 85730; 90471; 90715; 93005; 93010; 96372; 96374; 99285; G0480; J1630; J2060; J2405; J3486; 80320

== ENCOUNTER 2019-05-01 22:58 | Emergency (ER) | payer SELFPAY ==
[2019-05-01 23:11] VITALS: BP 133/65
[2019-05-02] MEDS ORDERED: NACL 0.9% 1000 ML 1,000 ML IV ONE ×2 (00:27→04:33)
[2019-05-02 00:57] LABS: Basophils % (Auto) 0.7 % (0.0-1.8); Eosinophils # (Auto) 0.2 K/mm3 (0.0-0.4); Eosinophils % (Auto) 3.3 % (0.0-4.3); Hematocrit 36.2 % (30.3-42.9); Hemoglobin 11.7 gm/dl (10.1-14.3); Lymphocytes # (Auto) 2.2 K/mm3 (1.2-5.4); Lymphocytes % (Auto) 36.5 % (13.4-35.0); Mean Corpuscular HGB Conc 32 % (30-34); Mean Corpuscular Volume 82 fl (79-97); Monocytes # (Auto) 0.6 K/mm3 (0.0-0.8); Monocytes % (Auto) 10.7 % (0.0-7.3); Platelet Count 157 K/mm3 (140-440); Red Blood Count 4.41 M/mm3 (3.65-5.03); Red Cell Distribution Width 18.4 % (13.2-15.2)
[2019-05-02 01:15] LABS: Alanine Aminotransferase 10 units/L (7-56); Albumin 3.9 g/dL (3.9-5); BUN/Creatinine Ratio 11; Blood Urea Nitrogen 11 mg/dL (7-17); Hemolysis Index 10
[2019-05-02 06:03] LABS: Bilirubin,Urine NEG (Negative); Blood,Urine LG (Negative); Color,Urine Yellow (Yellow); Mucus,Urine FEW /HPF; Urobilinogen,Urine < 2.0 mg/dL (<2.0)
[2019-05-02 06:18] LABS: RBC,Urine > 182.0 /HPF (0.0-6.0)
[2019-05-02] MEDS ORDERED: LEVAQUIN PO ONE (06:29)
--- NOTE | 2019-05-02 06:35 | Emergency Department Report ---
ED Female HPI - General Chief complaint: Vaginal Bleeding Stated complaint: BLEEDING Source: patient Mode of arrival: Ambulatory Limitations: No Limitations - History of Present Illness Initial comments: Patient is a nulliparous 23-year-old -[place] female with no past medical history presents to the ED with acute onset persistent vaginal bleeding for the last 1 month, worse in the last 1 week. Patient also complains dysuria, urinary frequency and urgency, and low back pain. Patient had presented to the ED heavily intoxicated and alcohol not giving much history. Patient denies nausea, vomiting, dizziness, chest pain, shortness of breath, abdominal pain, sore throat, diarrhea, fever and chills. MD Complaint: vaginal bleeding, dysuria, other (lower back pain) -: Gradual, week(s) (4) Location: suprapubic Radiation: non-radiating Severity: moderate Severity scale (0 -10): 4 Quality: cramping, dull Consistency: constant Improves with: none Worsens with: menstrual period Are you Now?: No Last Menstrual Period: 03/30/19 EDC: 01/04/20 Associated Symptoms: denies other symptoms, vaginal bleeding, dysuria, hematuria. denies: vaginal discharge, abdominal pain, nausea/vomiting, fever/chills, headaches, loss of appetite, rash, seizure, shortness of breath, syncope, weakness - Related Data Sexually active: Yes : 0 Para: 0 A: 0 Previous Rx's Medication Instructions Recorded Last Taken Type Ibuprofen [Motrin] 600 mg PO Q8H PRN #15 tablet 10/29/16 Unknown Rx methOCARBAMOL [Robaxin TAB] 500 mg PO Q6H PRN #15 tablet 10/29/16 Unknown Rx Ciprofloxacin HCl [Ciprofloxacin 500 mg PO Q12HR #20 tab 11/23/16 Unknown Rx TAB] HYDROcodone/APAP 5-325 [[place] 1 - 2 each PO Q6HR PRN #10 tablet 11/23/16 Unknown Rx 5/325] Promethazine [Phenergan TAB] 25 mg PO Q6HR PRN #20 tab 11/23/16 Unknown Rx Promethazine [Phenergan] 25 mg OK Q6HR PRN #5 supp.rect 11/23/16 Unknown Rx Bacitracin [Bacitracin Ophth] 3.5 gm OP Q6HR #1 oint...g. 05/16/17 Unknown Rx cephALEXin [Keflex] 500 mg PO Q12HR #10 cap 05/16/17 Unknown Rx Cyclobenzaprine [Flexeril] 10 mg PO QHS #15 tablet 08/15/18 Unknown Rx Ibuprofen [Motrin 800 MG tab] 800 mg PO Q8HR PRN #20 tablet 08/15/18 Unknown Rx cephALEXin [Keflex] 500 mg PO Q8HR #30 cap 05/02/19 Unknown Rx medroxyPROGESTERone ACETATE 10 mg PO DAILY #10 tablet 05/02/19 Unknown Rx [Medroxyprogesterone Acetate] Allergies Allergy/AdvReac Type Severity Reaction Status Date / Time No Known Allergies Allergy Verified 01/06/15 18:15 ED Review of Systems ROS: Stated complaint: BLEEDING Other details as noted in HPI Constitutional: denies: chills, fever Eyes: denies: eye pain, eye discharge, vision change ENT: denies: ear pain, throat pain Respiratory: denies: cough, shortness of breath, wheezing Cardiovascular: denies: chest pain, palpitations Endocrine: no symptoms reported Gastrointestinal: denies: abdominal pain, nausea, vomiting, diarrhea, hematemesis, melena, hematochezia Genitourinary: abnormal menses (heavy vaginal bleeding). denies: urgency, dysuria, discharge Musculoskeletal: back pain (lower), arthralgia. denies: joint swelling Skin: denies: rash, lesions Neurological: denies: headache, weakness, paresthesias Psychiatric: other (alcohol abuse). denies: anxiety, depression, suicidal thoughts Hematological/Lymphatic: denies: easy bleeding, easy bruising ED Past Medical Hx - Past Medical History Previous Medical History?: Yes Hx Hypertension: No Hx CVA: No Hx Heart Attack/AMI: No Hx Congestive Heart Failure: No Hx Diabetes: No Hx Deep Vein Thrombosis: No Hx Pulmonary Embolism: No Hx GERD: No Hx Liver Disease: No Hx Renal Disease: No Hx Sickle Cell Disease: No Hx Arthritis: No Hx Headaches / Migraines: No Hx Seizures: No Hx Kidney Stones: No Hx Psychiatric Treatment: No Hx Asthma: No Hx COPD: No Hx Tuberculosis: No Hx Dementia: No Hx HIV: No Additional medical history: Chronic Back Pain - Surgical History Past Surgical History?: No - Social History Smoking Status: Current Every Day Smoker Substance Use Type: Alcohol, Marijuana - Medications Home Medications: Home Medications Medication Instructions Recorded Confirmed Last Taken Type Ibuprofen [Motrin] 600 mg PO Q8H PRN #15 tablet 10/29/16 Unknown Rx methOCARBAMOL [Robaxin TAB] 500 mg PO Q6H PRN #15 tablet 10/29/16 Unknown Rx Ciprofloxacin HCl [Ciprofloxacin 500 mg PO Q12HR #20 tab 11/23/16 Unknown Rx TAB] HYDROcodone/APAP 5-325 [[place] 1 - 2 each PO Q6HR PRN #10 tablet 11/23/16 Unknown Rx 5/325] Promethazine [Phenergan TAB] 25 mg PO Q6HR PRN #20 tab 11/23/16 Unknown Rx Promethazine [Phenergan] 25 mg [place] Q6HR PRN #5 supp.rect 11/23/16 Unknown Rx Bacitracin [Bacitracin Ophth] 3.5 gm OP Q6HR #1 oint...g. 05/16/17 Unknown Rx cephALEXin [Keflex] 500 mg PO Q12HR #10 cap 05/16/17 Unknown Rx Cyclobenzaprine [Flexeril] 10 mg PO QHS #15 tablet 08/15/18 Unknown Rx Ibuprofen [Motrin 800 MG tab] 800 mg PO Q8HR PRN #20 tablet 08/15/18 Unknown Rx cephALEXin [Keflex] 500 mg PO Q8HR #30 cap 05/02/19 Unknown Rx medroxyPROGESTERone ACETATE 10 mg PO DAILY #10 tablet 05/02/19 Unknown Rx [Medroxyprogesterone Acetate] ED Physical Exam - General Limitations: No Limitations General appearance: alert, in no apparent distress - Head Head exam: Present: atraumatic, normocephalic, normal inspection - Eye Eye exam: Present: normal appearance, PERRL, EOMI Pupils: Present: normal accommodation - ENT ENT exam: Present: normal exam, normal orophraynx, mucous membranes moist, TM's normal bilaterally, normal external ear exam - Neck Neck exam: Present: normal inspection, full ROM - Respiratory Respiratory exam: Present: normal lung sounds bilaterally. Absent: respiratory distress, wheezes, rales, rhonchi, stridor, chest wall tenderness, accessory muscle use, decreased breath sounds - Cardiovascular Cardiovascular Exam: Present: regular rate, normal rhythm, normal heart sounds. Absent: systolic murmur, diastolic murmur, rubs, gallop - GI/Abdominal GI/Abdominal exam: Present: soft, normal bowel sounds. Absent: tenderness, guarding, rebound, hyperactive bowel sounds, hypoactive bowel sounds, organomegaly - Rectal Rectal exam: Present: deferred - Bi-manual exam: Present: other (Deferred, patient unable to give concent due to alcohol intoxication) - Extremities Exam Extremities exam: Present: normal inspection, full ROM, normal capillary refill - Back Exam Back exam: Present: normal inspection, full ROM. Absent: tenderness, CVA tenderness (R), CVA tenderness (L), muscle spasm, paraspinal tenderness - Neurological Exam Neurological exam: Present: alert, oriented X3, CN II-XII intact, normal gait, reflexes normal - Psychiatric Psychiatric exam: Present: normal affect, normal mood, other (intoxicated on alcohol) - Skin Skin exam: Present: warm, dry, intact, normal color. Absent: rash ED Course Vital Signs 05/01/19 23:11 Temperature 97.9 F Pulse Rate 92 H Respiratory 18 Rate Blood Pressure 133/65 [Left] O2 Sat by Pulse 97 Oximetry - Reevaluation(s) Reevaluation #1: 05/02/19 06:38 This is a 23-year-old -[place] female who presented to the ED intoxicated on alcohol and a persistent heavy vaginal bleeding for the last 1 month, was in the last 1 week with low back pain and dysuria. In the ED, lab test results were reviewed and are significant for sodium alcohol level 0.15 and urinalysis showed significant urinary tract infection with blood in the urine. No pelvic exam was performed because the patient was intoxicated and could not give consent. Patient was treated in the ED with normal saline 1 L IV bolus 1 and Levaquin 500 mg by mouth empirically for UTI. Patient was discharged home on medications and advised to follow-up with [facility] physician Dr. Louise Perea in 7-10 days for reevaluation. Patient was advised to return to the ED immediately if symptoms get worse. Patient was counseled on dangeous cause alcohol abuse when she sobered up prior to being discharged from the hospital. 05/02/19 06:41 ED Medical Decision Making - Lab Data Result diagrams: 05/02/19 00:37 05/02/19 00:37 - Medical Decision Making This is a 23-year-old -[place] female who presented to the ED intoxicated on alcohol and a persistent heavy vaginal bleeding for the last 1 month, was in the last 1 week with low back pain and dysuria. In the ED, lab test results were reviewed and are significant for sodium alcohol level 0.15 and urinalysis showed significant urinary tract infection with blood in the urine. No pelvic exam was performed because the patient was intoxicated and could not give consent. Patient was treated in the ED with normal saline 1 L IV bolus 1 and Levaquin 500 mg by mouth empirically for UTI. Patient was discharged home on medications and advised to follow-up with [facility] physician Dr. Louise Perea in 7-10 days for reevaluation. Patient was advised to return to the ED immediately if symptoms get worse. Patient was counseled on alcohol abuse when she sobered up prior to being discharged from the hospital. - Differential Diagnosis Alcohol intoxication; UTI; Dysfunctional uterine bleeding Critical care attestation.: If time is entered above; I have spent that time in minutes in the direct care of this critically ill patient, excluding procedure time. ED Disposition Clinical Impression: Dysfunctional uterine hemorrhage, Acute urinary tract infection, Alcohol cessation counseling Alcohol intoxication Qualifiers: Complication of substance-induced condition: uncomplicated Qualified Code(s): F10.920 - Alcohol use, unspecified with intoxication, uncomplicated Disposition: DC-01 TO HOME OR SELFCARE Is pt being admited?: No Does the pt Need Aspirin: No Condition: Stable Instructions: Urinary Tract Infection in Women (ED), Menstruation (ED) Additional Instructions: Take Medications with food, drink plenty of fluids and follow-up with the [facility] physician in 7-10 days for reevaluation. Return to the ED immediately if symptoms get worse Prescriptions: cephALEXin [Keflex] 500 mg PO Q8HR #30 cap medroxyPROGESTERone ACETATE [Medroxyprogesterone Acetate] 10 mg PO DAILY #10 tab let Referrals: MIRTHA PEREA MD [Staff Physician] - 3-5 Days Time of Disposition: 06:34 Print Language: IRISH
== END 2019-05-02 07:02 | disposition home or self-care (01) ==
LOC: ED 22:58
DX: N39.0 Urinary tract infection, site not specified (principal); F10.129 Alcohol abuse with intoxication, unspecified; F17.200 Nicotine dependence, unspecified, uncomplicated; F12.10 Cannabis abuse, uncomplicated
CPT/HCPCS: 36415; 80053; 81001; 82693; 83690; 84702; 85025; 87086; 99283; J7030; 80320; G0480